=== PATIENT | male | born 2000 | race Caucasian/White ===

== ENCOUNTER 2023-04-06 15:33 | Emergency (ER) | payer OTHER ==
[~2023-04-06] VITALS: Ht 182.9 cm; Wt 81.8 kg
[2023-04-06] MEDS ORDERED: ACETAMINOPHEN-H1 TA2 PO (17:11)
[2023-04-06] MEDS ORDERED: NORCO 325 MG-51 TA1 PO ×2 (17:15→17:20)
[2023-04-06 17:38] VITALS: BP 127/76
== END 2023-04-06 17:32 | disposition home or self-care (01) ==
LOC: ED 15:33
DX: S52.122A Displaced fracture of head of left radius, initial encounter for closed fracture (principal); W00.0XXA Fall on same level due to ice and snow, initial encounter; Y92.59 Other trade areas as the place of occurrence of the external cause; Y99.0 Civilian activity done for income or pay